=== PATIENT | male | born 1980 | race African-American/Black ===

== ENCOUNTER 2022-04-20 20:41 | Inpatient (IN) ==
[2022-04-20] MEDS ORDERED: THIAMINE HCL 200 MG in SODIUM CHLORIDE 0.9% 50 ML IV STA (20:52)
[2022-04-20] MEDS ORDERED: ONDANSETRON INJ 2 MG/ML 2 ML VIAL IV STA (20:52)
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
[2022-04-20] MEDS ORDERED: SODIUM CHLORIDE 0.9% 1000ML 1,000 ML IV SCH (21:00)
[2022-04-20 21:21] LABS: Partial Thromboplastin Ratio 0.9; Partial Thromboplastin Time 23.4 Seconds (21.0-31.0); Prothrombin Time 10.4 Seconds (9.0-12.0)
[2022-04-20 21:31] LABS: Basophils # (auto) 0.07 K/uL (0-0.2); Basophils % (auto) 1.4 %; Eosinophils # (auto) 0.32 K/uL (0-0.50); Eosinophils % (auto) 6.3 %; Hematocrit (blood only) 36.4 % (40.1-51.0); Hemoglobin 12.6 g/dl (14.0-18.0); Immature Granulocytes # (auto) 0.01 K/uL (0.00-0.02); Immature Granulocytes % (auto) 0.2 %; Lymphocytes # (auto) 2.56 K/uL (1.2-3.4); Mean Corpuscular Hgb Conc 34.6 g/dL (32.0-36.0); Mean Corpuscular Volume 89.7 fL (80.0-100.0); Mean Platelet Volume 9.2 fL (9.4-12.4); Monocytes # (auto) 0.32 K/uL (0.24-0.82); Monocytes % (auto) 6.3 %; Neutrophils # (auto) 1.84 K/uL (1.4-6.5); Neutrophils % (auto) 35.8 %; Platelet Count 301 K/uL (130-400); RDW Coefficient of Variation 12.2 % (11.5-14.5); RDW Standard Deviation 40.4 fL (36.4-46.3); Red Blood Count 4.06 M/uL (4.63-6.08); White Blood Count 5.12 K/ul (4.8-10.8)
[2022-04-20 21:32] LABS: Acetaminophen < 3 ug/ml (10-30); Salicylate < 3.0 mg/dl (3.0-30)
[2022-04-20 21:33] LABS: Albumin Globulin Ratio 1.6 (0.9-2); Albumin Level 4.1 gm/dl (3.4-5.0); BUN Creatinine Ratio 16.5 (10-20); Bilirubin,Total 0.4 mg/dl (0.2-1.0); Calcium 8.4 mg/dl (8.5-10.1); Est GFR (African American) 131.1 ml/min; Est GFR (Non-African American) 113.1 ml/min; Globulin 2.6 gm/dl (2.5-4.0); Potassium 3.5 mmol/L (3.5-5.1); Total Protein 6.7 gm/dl (6.0-8.3)
[2022-04-20 21:38] LABS: Troponin I High Sensitivity 5.9 pg/ml (0-20)
[2022-04-21] MEDS ORDERED: SODIUM CHLORIDE 0.9% 1000ML 1,000 ML IV ONE (01:01)
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
[2022-04-21] MEDS ORDERED: Ativan IV Alcohol Withdrawal--Active Protocol IV PRN (02:56)
[2022-04-21] MEDS ORDERED: ONDANSETRON INJ 2 MG/ML 2 ML VIAL IV PRN (02:56)
[2022-04-21] MEDS ORDERED: LORazepam 1 MG in SYRINGE 0 ML IV PRN (02:56)
[2022-04-21] MEDS ORDERED: LORazepam 3 MG in SYRINGE 0 ML IV PRN (02:56)
[2022-04-21] MEDS ORDERED: LORazepam 2 MG in SYRINGE 0 ML IV PRN (02:56)
[2022-04-21] MEDS: LACTATED RINGER'S 1,000 ML IV SCH ×2 (03:37→11:21)
[2022-04-21 03:43] LABS: Appearance Urine Cloudy (Clear); Bacteria Urine Automated Negative (Negative); Bilirubin Urine Negative (Negative); Blood Urine Negative (Negative); Color Urine Yellow; Epithelial Cell Urine Auto 20-30 /lpf (0-5); Glucose Urine UA Negative (Negative); Ketones Urine Trace (Negative); Leukocyte Esterase Urine 1+ (Negative); Nitrite Urine Negative (Negative); Protein Urine Negative (Negative); RBC Urine Automated 0-4 /hpf (0-4); Specific Gravity Urine 1.022 (1.000-1.030); Urobilinogen Urine Negative (Negative)
[2022-04-21 04:03] LABS: Amphetamines+Metham, Urine Neg (Neg); Barbiturates, Urine Neg (Neg); Benzodiazepine, Urine Neg (Neg); Cocaine, Urine Neg (Neg); MDMA (Ecstacy), Urine Neg (Neg); Methadone, Urine Neg (Neg); Opiate, Urine Neg (Neg); Phencyclidine, Urine Neg (Neg)
[2022-04-21 04:03] LABS: Hematocrit (blood only) 31.8 % (40.1-51.0); Mean Corpuscular Hemoglobin 31.5 pg (25.0-34.0); Mean Corpuscular Hgb Conc 34.6 g/dL (32.0-36.0); Mean Corpuscular Volume 91.1 fL (80.0-100.0); Platelet Count 251 K/uL (130-400); RDW Coefficient of Variation 12.8 % (11.5-14.5); RDW Standard Deviation 42.4 fL (36.4-46.3); Red Blood Count 3.49 M/uL (4.63-6.08); White Blood Count 4.52 K/ul (4.8-10.8)
[2022-04-21 04:21] LABS: BUN Creatinine Ratio 19.3 (10-20); Calcium 7.7 mg/dl (8.5-10.1); Creatinine Clr Calc Pharmacy 138.9 ml/min; Est GFR (African American) 128.5 ml/min; Est GFR (Non-African American) 110.8 ml/min; Potassium 3.7 mmol/L (3.5-5.1)
[2022-04-21 04:30] LABS: Basophils # (auto) 0.04 K/uL (0-0.2); Basophils % (auto) 0.9 %; Eosinophils # (auto) 0.36 K/uL (0-0.50); Lymphocytes # (auto) 2.45 K/uL (1.2-3.4); Lymphocytes % (auto) 54.2 %; Monocytes # (auto) 0.37 K/uL (0.24-0.82); Monocytes % (auto) 8.2 %; Neutrophils % (auto) 28.7 %
--- NOTE | 2022-04-21 06:39 | CT Scan Report ---
CT head/brain wo con CLINICAL HISTORY: 41 years-old Male with sz. Acute seizure like activity TECHNIQUE: Multiple axial CT images of the head were obtained without contrast. A dose lowering tech nique was utilized adhering to the principles of ALARA. CT DOSE: 1014.16 mGy.cm COMPARISON: CT cervical spine of same day FINDINGS: No acute intracranial hemorrhage, midline shift, intracranial mass, hydrocephalus, territorial ischem ia or abnormal extra-axial collection. Encephalomalacia within the left greater than right parietal o ccipital distributions. Calcifications of the falx cerebri. The calvarium is intact. The paranasal sinuses, mastoid air cells, and middle ear cavities are clear . IMPRESSION: 1. No acute intracranial abnormality. 2. Encephalomalacia of the left greater than right parieto-occipital distributions compatible with ar eas of chronic insult. ACT 112: Negative or not required by law. The above report was generated using voice recognition software. It may contain grammatical, syntax o r spelling errors. Electronically signed by: Roberto Kaufman M.D. 04/21/2022 6:37 AM
--- NOTE | 2022-04-21 08:04 | XRay Report ---
XR chest 1V portable HISTORY: 41 years-old Male sz acute seizure like activity COMPARISON: Chest radiograph and CTA chest 04/01/2022 TECHNIQUE: AP view of the chest FINDINGS: Cardiomediastinal and hilar silhouettes are within normal limits. No pneumothorax, pleural effusion, airspace consolidation or overt pulmonary edema. Bones of the chest appear grossly intact. There is u nchanged 1.9 cm ossification projected over the left axilla. IMPRESSION: No acute process. ACT 112: Negative or not required by law. The above report was generated using voice recognition software. It may contain grammatical, syntax o r spelling errors. Electronically signed by: Roberto Kaufman M.D. 04/21/2022 8:03 AM
[2022-04-21] MEDS: NICOTINE 14 MG/24 HR PATCH TD SCH (08:23)
[2022-04-21] MEDS: THIAMINE HCL 100 MG TAB PO SCH (08:24)
[2022-04-21] MEDS: levETIRAcetam 500 MG TAB PO SCH ×2 (08:24→20:11)
[2022-04-21] MEDS: FOLIC ACID 1 MG TAB PO SCH (08:25)
--- NOTE | 2022-04-21 08:37 | CT Scan Report ---
CT OF THE CERVICAL SPINE WITHOUT CONTRAST CLINICAL HISTORY: Seizure. COMPARISON STUDY: No previous studies for comparison. TECHNIQUE: Helical axial images of the cervical spine were obtained without IV contrast. Sagittal a nd coronal reconstructions were viewed. Automated exposure control was utilized for the study. A do se lowering technique was utilized adhering to the principles of ALARA. FINDINGS: There is reversal of the cervical lordosis. Vertebral body heights are maintained. No acute cervical spine fracture or subluxation is present. There is no prevertebral edema. Facet joints are intact. Mild multilevel degenerative changes are present within the cervical spine. IMPRESSION: No acute cervical spine fracture or subluxation. ACT 112: Negative or not required by law. Electronically signed by: Raul Campos M.D. 04/21/2022 8:36 AM
--- NOTE | 2022-04-21 11:13 | Electrocardiogram Report ---
Test Reason : Blood Pressure : / mmHG Vent. Rate : 071 BPM Atrial Rate : 071 BPM P-R Int : 146 ms QRS Dur : 086 ms QT Int : 366 ms P-R-T Axes : 063 073 061 degrees QTc Int : 397 ms Normal sinus rhythm ST elevation, consider early repolarization, pericarditis, or injury Normal ECG When compared with ECG of 01-APR-2022 20:48, No significant change was found Confirmed by Sancho Lara ([id number]) on 04/21/2022 11:12:39 AM Referred By: REFERRED SELF Confirmed By:Rk Lara
--- NOTE | 2022-04-21 15:35 | Hospitalist Progress Note ---
Date of Service April 21, 2022 Assessment & Plan (1) Desire for detoxification: Plan: 41yo male with history of daily EtOH use presents requesting placement in rehabilitation. Patient drinks daily, difficult to quantify amount. He reports sometimes over 20 drinks/day. Last drink was prior to arrival. Elevated ETOH level on admission No prior EtOH rehab placement per patient Mild tremors on exam Continue CIWA protocol Fall and seizure precausion Thiamine and Folate repletion (2) Seizure-like activity: Plan: Patient with history of seizures -Continue keppra -Seizure precautions per protocol Plan Ppx - low risk for DVT Code - DNR/DNI per discussion with patient Dispo - Admit to medical with telemetry Admission and Anticipated Discharge Date Admission Date: April 21, 2022 Subjective patient seen and examined in the ER, came for detox Review of Systems Review of Systems: All systems reviewed are negative, apart from the ones contained in the history. Physical Exam Physical Exam: The patient is awake, alert and oriented 3, well developed and well nourished, normocephalic and atraumatic, lying in bed and in no acute distress. HEENT--PERRL, EOMI, mucous membranes and oropharynx mildly dry Neck--supple. No JVD. No bruits. Thyroid normal, trachea midline, no adenopathy. Heart--normal S1 and S2. No murmurs, rubs or gallops. Lungs--clear bilaterally, no respiratory distress, no accessory muscle use. Abdomen--normal bowel sounds and soft. Mild epigastric and left sided abdominal pain Extremities--no cyanosis or clubbing. No edema. Dermatologic--normal skin turgor, normal color, no abnormal lymph nodes, no rash. Neurologic--cranial nerves II through XII grossly intact. Rheumatologic--normal range of motion. Psychiatric--normal affect. Results & Data Results & Data ([facility]) Vital Signs (Past 12 Hours) Vital Signs Temp Pulse Pulse Resp BP Pulse Ox O2 Del Method 04/21/22 15:21 98.6 F 80 118/70 98 Room Air 04/21/22 08:29 71 13 118/72 04/21/22 03:38 99.3 F 89 21 108/66 98 Room Air PG Care Time/CCT Total # of Minutes Spent Total Time Spent with Patient: Total time spent is greater than 50% in coordination of care (as documented) at patient's floor/unit and/or counseling patient: Coding Level of Care Code None Diagnoses Desire for detoxification Seizure-like activity R56.9
[2022-04-22 08:40] LABS: BUN Creatinine Ratio 21.3 (10-20); Calcium 8.3 mg/dl (8.5-10.1); Creatinine Clr Calc Pharmacy 144.1 ml/min; Est GFR (African American) 130.4 ml/min; Est GFR (Non-African American) 112.5 ml/min; Potassium 4.2 mmol/L (3.5-5.1)
[2022-04-22] MEDS: THIAMINE HCL 100 MG TAB PO SCH (08:46)
[2022-04-22] MEDS: levETIRAcetam 500 MG TAB PO SCH ×2 (08:46→21:27)
[2022-04-22] MEDS: FOLIC ACID 1 MG TAB PO SCH (08:47)
[2022-04-22] MEDS: NICOTINE 14 MG/24 HR PATCH TD SCH (08:47)
[2022-04-22] MEDS: ACETAMINOPHEN 325 MG TAB PO PRN ×2 (08:57→14:01)
--- NOTE | 2022-04-22 13:31 | Hospitalist Progress Note ---
Date of Service April 22, 2022 Assessment & Plan (1) Desire for detoxification: Plan: 41yo male with history of daily EtOH use presents requesting placement in rehabilitation. Patient drinks daily, difficult to quantify amount. He reports sometimes over 20 drinks/day. Last drink was prior to arrival. Alcohol abuse with intoxication with request for detox: Elevated ETOH level on admission No prior EtOH rehab placement per patient Mild tremors on exam Continue CIWA protocol Fall and seizure precausion Thiamine and Folate repletion (2) Seizure-like activity: Plan: Patient with history of seizures -Continue keppra -Seizure precautions per protocol Plan Ppx - low risk for DVT Code - DNR/DNI per discussion with patient Dispo - continue hospitalization Admission and Anticipated Discharge Date Admission Date: April 21, 2022 Subjective patient seen and examined, no new complaints Review of Systems Review of Systems: All systems reviewed are negative, apart from the ones contained in the history. Physical Exam Physical Exam: The patient is awake, alert and oriented 3, well developed and well nourished, normocephalic and atraumatic, lying in bed and in no acute distress. HEENT--PERRL, EOMI, mucous membranes and oropharynx mildly dry Neck--supple. No JVD. No bruits. Thyroid normal, trachea midline, no adenopathy. Heart--normal S1 and S2. No murmurs, rubs or gallops. Lungs--clear bilaterally, no respiratory distress, no accessory muscle use. Abdomen--normal bowel sounds and soft. Mild epigastric and left sided abdominal pain Extremities--no cyanosis or clubbing. No edema. Dermatologic--normal skin turgor, normal color, no abnormal lymph nodes, no rash. Neurologic--cranial nerves II through XII grossly intact. Rheumatologic--normal range of motion. Psychiatric--normal affect. Results & Data Results & Data ([facility]) Vital Signs (Past 12 Hours) Vital Signs Temp Pulse Pulse Resp BP Pulse Ox O2 Del Method 04/22/22 09:00 68 04/22/22 08:03 98.6 F 67 18 99/63 L 100 Room Air 04/22/22 06:04 97.7 F 73 16 112/73 97 Room Air 04/22/22 04:22 97.9 F 70 20 95/58 L 100 Room Air PG Care Time/CCT Total # of Minutes Spent Total Time Spent with Patient: Total time spent is greater than 50% in coordination of care (as documented) at patient's floor/unit and/or counseling patient: Coding Level of Care Code 61548 Subseq Hosp Care Lvl 2 Diagnoses Desire for detoxification Seizure-like activity R56.9 Time Spent (min) 35
--- NOTE | 2022-04-22 15:09 | XRay Report ---
XR shoulder RT min 2V routine CLINICAL HISTORY: Right shoulder pain. COMPARISON STUDY: None. FINDINGS: No fracture or dislocation within the right shoulder. The right clavicle is intact. Soft ti ssues are unremarkable. Cartilage spaces are maintained for age. Slight offset at the radiocarpal trey nt. This could represent an old acromioclavicular joint separation. IMPRESSION: 1. No acute fracture or dislocation within the right shoulder. 2. Slight offset at the right acromioclavicular joint which could represent an old separation. ACT 112: Negative or not required by law. Electronically signed by: Leroy Blake M.D. 04/22/2022 3:08 PM
[2022-04-22 21:16] LABS: Appearance Urine Clear (Clear); Bacteria Urine Automated 1+ (Negative); Bilirubin Urine Negative (Negative); Blood Urine Negative (Negative); Color Urine Yellow; Epithelial Cell Urine Auto >30 /lpf (0-5); Glucose Urine UA Negative (Negative); Ketones Urine Trace (Negative); Leukocyte Esterase Urine Trace (Negative); Nitrite Urine Negative (Negative); Protein Urine Negative (Negative); RBC Urine Automated 0-4 /hpf (0-4); Specific Gravity Urine 1.025 (1.000-1.030); Urobilinogen Urine Negative (Negative)
[2022-04-23] MEDS: levETIRAcetam 500 MG TAB PO SCH (08:00)
[2022-04-23] MEDS: NICOTINE 14 MG/24 HR PATCH TD SCH (08:00)
[2022-04-23] MEDS: THIAMINE HCL 100 MG TAB PO SCH (08:04)
[2022-04-23] MEDS: FOLIC ACID 1 MG TAB PO SCH (08:04)
--- NOTE | 2022-04-23 12:48 | Discharge Summary ---
Date of Service April 23, 2022 Admission HPI Per Admitting Provider Ambar Larsen is a 41yo male with history of seizure disorder, EtOH use presenting with request for EtOH detoxification. Patient sleeping, arousable and answers questions but does not provide many details of events prior to arrival. Patient is presently undomiciled and resides at the [facility]. He states that he was kicked out of the retirement yesterday due to having an argument with someone. He is able to return to the retirement in 7 days (Wednesday, April 27). He reports that he "drinks a lot", whatever he can get his hands on. Difficult to quantify amount of daily EtOH intake - patient reports sometimes it is over 20 drinks Last drink was 04/20/22 prior to arrival to ER. Patient denies history of complicated EtOH withdrawals. He does have a history of seizure disorder for which he takes Keppra but states his seizures are unrelated to intoxication or withdrawal. No additional complaints at this time. Specifically patient denies fever, chills, cough, SOB, abdominal pain, nausea, vomiting, diarrhea or constipation. He does report having a "knot" in his chest sometimes but seems to be non- exertional. In the ER he is afebrile, HD stable, NAD ER Course: Zofran, NSS, Thiamine Principal Diagnosis alcohol intoxication Discharge Exam The patient is awake, alert and oriented 3, well developed and well nourished, normocephalic and atraumatic, lying in bed and in no acute distress. HEENT--PERRL, EOMI, mucous membranes and oropharynx mildly dry Neck--supple. No JVD. No bruits. Thyroid normal, trachea midline, no adenopathy. Heart--normal S1 and S2. No murmurs, rubs or gallops. Lungs--clear bilaterally, no respiratory distress, no accessory muscle use. Abdomen--normal bowel sounds and soft. Mild epigastric and left sided abdominal pain Extremities--no cyanosis or clubbing. No edema. Dermatologic--normal skin turgor, normal color, no abnormal lymph nodes, no rash. Neurologic--cranial nerves II through XII grossly intact. Rheumatologic--normal range of motion. Psychiatric--normal affect. Discharge Data Allergies Allergy/AdvReac Type Severity Reaction Status Date / Time No Known Allergies Allergy Verified 04/20/22 22:02 Consultations 04/21/22 02:12 ED Decision to Admit Stat Ordered Studies 04/20/22 20:52 CT cervical spine wo con Stat CT head/brain wo con Stat Hospital Course (1) Desire for detoxification: 41yo male with history of daily EtOH use presents requesting placement in [facility]. Patient drinks daily, difficult to quantify amount. He reports sometimes over 20 drinks/day. Last drink was prior to arrival. Alcohol abuse with intoxication with request for detox: Elevated ETOH level on admission No prior EtOH rehab placement per patient Mild tremors on exam Continue CIWA protocol, did not score on CIWA, so did not receive any Ativan throughout his stay Fall and seizure precaution Thiamine and Folate repletion patient was counselled on alcohol cessation (2) Seizure-like activity: Patient with history of seizures -Continue keppra -Seizure precautions per protocol Plan Ppx - low risk for DVT Code - DNR/DNI per discussion with patient Dispo - d/c Total Time Total Time Spent Total Time Spent (In Minutes): 35 Discharge Plan Discharge Items Patient Disposition: Home - Self-Care Reason For Visit: REQUESTING REHAB PLACEMENT Discharge Diagnosis: alcohol intoxication, UTI Activity: Resume your previous activity Non-emergency contact: Primary Care Provider Call non-emergency contact if: you have any medication questions Follow-up/Referrals: PCP,NO [Primary Care Provider] - Diet: Regular Addtl Attending Provider Instructions: You are encouraged to stop alcohol and join active groups that will help alcohol cessation, like [facility] Pending Studies at Discharge: No Stand-Alone Forms: [employer], Smoking Cessation Medications and DC Order Prescriptions: New cephalexin 500 mg capsule 500 mg PO BID 7 Days Qty: 14 0RF Continued levetiracetam 750 mg tablet 1,300 mg PO BID Discharge Orders: Discharge Order (Routine); Ordered 04/23/22 Ordered By: Jeff Oakley Admission Data Admit Date/Time: 04/21/22 02:31 Attending Provider: Jeff Oakley Admit Provider: Ale Carpio Primary Care Provider: PCP,NO Other Providers: Ale Carpio Other Interventions: Discharge Summary Assessment (RN) Last Done: 04/23/22 11:28 Coding Level of Care Code D/C DAY MANAGEMENT >30 MINS Diagnoses Desire for detoxification Seizure-like activity R56.9 Time Spent (min) 35
== END 2022-04-23 11:46 | disposition home or self-care (01) | DRG 897 ==
LOC: ED 20:41 → EDINP 04-21 02:31 → SUATTDRO 04-21 02:31 → 2N 04-21 02:55

== ENCOUNTER 2023-08-26 23:44 | Inpatient (IN) ==
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
[2023-08-27 01:06] LABS: Basophils # (auto) 0.05 K/uL (0.00-0.20); Basophils % (auto) 0.9 %; Eosinophils # (auto) 0.37 K/uL (0.00-0.50); Eosinophils % (auto) 6.4 %; Hematocrit (blood only) 37.6 % (42.0-52.0); Immature Granulocytes # (auto) 0.02 K/uL (0.01-0.20); Immature Granulocytes % (auto) 0.3 %; Lymphocytes # (auto) 2.48 K/uL (1.20-3.40); Lymphocytes % (auto) 43.1 %; Mean Corpuscular Hemoglobin 30.7 pg (25.0-34.0); Mean Corpuscular Hgb Conc 34.6 g/dL (32.0-36.0); Mean Corpuscular Volume 88.9 fL (80.0-100.0); Mean Platelet Volume 9.3 fL (9.4-12.4); Monocytes % (auto) 5.2 %; Neutrophils # (auto) 2.54 K/uL (1.40-6.50); Neutrophils % (auto) 44.1 %; Platelet Count 232 K/uL (130-400); RDW Standard Deviation 42.3 fL (36.4-46.3); Red Blood Count 4.23 M/uL (4.70-6.10); White Blood Count 5.76 K/ul (4.8-10.8)
[2023-08-27 01:12] LABS: Influenza A virus by PCR Negative (Neg); Influenza B virus by PCR Negative (Neg); RSV by PCR Negative (Neg); SARS CoV2 RNA(COVID-19) Ceph NEGATIVE (Negative)
[2023-08-27 01:20] LABS: Albumin Globulin Ratio 1.7 (0.9-2); BUN Creatinine Ratio 20.5 (10-20); Bilirubin,Total 0.4 mg/dl (0.2-1.0); Calcium 8.4 mg/dl (8.6-10.3); Creatinine Clr Calc Pharmacy 140.8 ml/min; Est GFR (African American) 129.9 ml/min; Est GFR (Non-African American) 112.1 ml/min; Globulin 2.4 gm/dl (2.5-4.0); Potassium 3.6 mmol/L (3.5-5.1); Total Protein 6.4 gm/dl (6.0-8.3)
[2023-08-27] MEDS: KETOROLAC TROMETHAMINE 60 MG/2 ML VIAL IM STA (01:31)
[2023-08-27 01:33] LABS: Thyroid Stimulating Hormone 0.444 uIu/ml (0.300-4.500)
[2023-08-27] MEDS: KETOROLAC 30 MG/ML VIAL IV ONE (01:34)
[2023-08-27 02:14] LABS: Acetaminophen < 3 ug/ml (10-30); Salicylate < 3.0 mg/dl (3.0-30)
[2023-08-27] MEDS: DIPHTHER/TETAN/PERTUS Vaccine (Tdap, Adol/Adult) 0.5mL IM ONE (05:50)
[2023-08-27] MEDS ORDERED: LORazepam 1 MG in SYRINGE 0.5 ML IV PRN (07:00)
[2023-08-27] MEDS ORDERED: LORazepam 2 MG in SYRINGE 1 ML IV PRN (07:00)
[2023-08-27] MEDS ORDERED: Ativan IV Alcohol Withdrawal--Active Protocol IV PRN (07:00)
[2023-08-27] MEDS ORDERED: LORazepam 3 MG in SYRINGE 1.5 ML IV PRN (07:00)
--- NOTE | 2023-08-27 07:02 | Emergency Department Note ---
ED Visit Note I received signout from Dr. Blair. The patient had transition to a 201 voluntary commitment as the patient had described wanting to harm himself. I do speak with case management. The patient is have a history of chronic alcohol use and there is a concern for withdrawal. Patient was admitted to the medicine service with psych consult. CIWA protocol was initiated and patient was ordered Librium. I did speak with Dr. Cortes and the patient was admitted to the medicine service. .
[2023-08-27] MEDS: chlordiazePOXIDE HCl 25 MG CAP PO SCH (07:37)
[2023-08-27 07:43] LABS: Appearance Urine Clear (Clear); Bacteria Urine Automated Negative (Negative); Bilirubin Urine Negative (Negative); Blood Urine Negative (Negative); Color Urine Yellow; Epithelial Cell Urine Auto >30 /lpf (0-5); Glucose Urine UA Negative (Negative); Ketones Urine 1+ (Negative); Leukocyte Esterase Urine Trace (Negative); Nitrite Urine Negative (Negative); Protein Urine Trace (Negative); RBC Urine Automated 0-4 /hpf (0-4); Specific Gravity Urine 1.028 (1.000-1.030); Urobilinogen Urine Negative (Negative); pH Urine 5.5 (4.5-7.5)
[2023-08-27] MEDS: chlordiazePOXIDE ALCOHOL WITHDRAWL 50MG PO STA (07:50)
[2023-08-27] MEDS: MULTI-VITAMIN INFUSION 10 ML, THIAMINE HCL 100 MG, FOLIC ACID 1 MG in SODIUM CHLORIDE 0... IV ONE (07:54)
[2023-08-27 07:59] LABS: Amphetamines+Metham, Urine Neg (Neg); Barbiturates, Urine Neg (Neg); Benzodiazepine, Urine Neg (Neg); Cocaine, Urine Neg (Neg); MDMA (Ecstacy), Urine Neg (Neg); Marijuana, Urine Neg (Neg); Methadone, Urine Neg (Neg); Opiate, Urine Neg (Neg); Phencyclidine, Urine Neg (Neg)
[2023-08-27] MEDS: THIAMINE HCL 100 MG in SYRINGE 9 ML IV SCH (09:15)
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
[2023-08-27] MEDS ORDERED: Nursing to Pharmacy Communication SCH (14:30)
[2023-08-27] MEDS: levETIRAcetam 500 MG TAB PO SCH (15:34)
--- NOTE | 2023-08-27 16:42 | Discharge Summary ---
Date of Service August 27, 2023 Admission HPI Per Admitting Provider 43-year-old black male who is frequently hospitalized with alcohol intoxication. He is again intoxicated but apparently made some threats of suicidal ideation. He was seen by the ER physician and subsequently recommended for admission and behavioral health consultation. I believe a [address] Principal Diagnosis Alcohol intoxication. Suicidal ideation Discharge Exam General-alert and oriented x3, no fever, no chills HEENT-head atraumatic and normocephalic, pupils equal and reactive to light, extraocular muscles intact Neck-no lymphadenopathy or thyromegaly, trachea midline Chest-clear to auscultation. No rales, wheezing or rhonchi Cardiac-regular rate and rhythm, normal S1 and S2 Abdomen-normal bowel sounds, nontender, no hepatosplenomegaly Extremities-no cyanosis, clubbing, or edema Neuro-cranial nerves II through XII intact, motor and sensory function within normal limits, strength symmetrical, no focal deficits Psych-normal affect, normal mood Discharge Data Allergies Allergy/AdvReac Type Severity Reaction Status Date / Time No Known Allergies Allergy Verified 05/12/23 00:54 Consultations 08/27/23 07:57 ED Decision to Admit Stat 08/27/23 12:23 Consult Behavioral Health Liaison Routine 08/27/23 16:38 Consult Psychiatry Routine Hospital Course (1) Suicidal ideation: Apparently expressed prior to admission. Psychiatry has seen the patient and he now denies any suicidal ideation. 302 has been removed. He is being discharged to home to follow-up as an outpatient. (2) Alcohol intoxication: AWSS protocol. Supportive care. Resolved Plan Home today, August 26. He needs to have outpatient psychiatric follow-up. He is aware. Total Time Total Time Spent Total Time Spent (In Minutes): 50 minutes Discharge Plan Discharge Items Patient Disposition: Home - Self-Care Reason For Visit: SUICIDAL IDEALION, ALCOHOL INTOXICATION Discharge Diagnosis: Suicidal ideation, alcohol intoxication Activity: Resume your previous activity Non-emergency contact: Primary Care Provider Call non-emergency contact if: your symptoms worsen Follow-up/Referrals: PCP,NO [Primary Care Provider] - Diet: Regular Addtl Attending Provider Instructions: Follow-up with psychiatry as an outpatient. Alcohol intake is strongly discouraged Pending Studies at Discharge: No Stand-Alone Forms: My [facility] [place], Smoking Cessation Medications and DC Order Prescriptions: Continued levetiracetam [Keppra] 750 mg tablet 1,500 mg PO BID Rx Instructions: 1st filled 04/29/2023 Discharge Orders: Discharge Order (Routine); Ordered 08/27/23 Ordered By: Eddie Alexander Admission Data Admit Date/Time: 08/27/23 12:21 Attending Provider: Eddie Alexander Admit Provider: Eddie Alexander Primary Care Provider: PCP,NO Other Providers: Eddie Alexander; Inessa Ashby Coding Level of Care Code 81457 INP/OBS DISCH >30 MIN Diagnoses Suicidal ideation R45.851 Alcohol intoxication F10.929
--- NOTE | 2023-08-27 16:44 | Communication Note ---
Date of Service: August 27, 2023 By CMS guidelines, a determination that the admission or continued stay is not medically necessary has been made by a member of the UR committee and a physi chris for this hospital stay, therefore a Code 44 will be completed and the Inpatient admission will be changed to outpatient.
--- NOTE | 2023-08-27 16:46 | Communication Note ---
Date of Service: August 27, 2023 By CMS guidelines, a determination that the admission or continued stay is not medically necessary has been made by a member of the UR committee and a phys ician for this hospital stay, therefore a Code 44 will be completed and the Inpatient admission will be changed to outpatient.
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
[2023-08-27] MEDS ORDERED: levETIRAcetam 500 MG TAB PO SCH (21:00)
[2023-08-28] MEDS ORDERED: chlordiazePOXIDE HCl 25 MG CAP PO SCH (09:15)
[2023-08-29] MEDS ORDERED: chlordiazePOXIDE HCl 25 MG CAP PO SCH (10:15)
== END 2023-08-27 17:10 | disposition home or self-care (01) | DRG 880 ==
LOC: SUATTDRO → ED 23:44 → EDINP 08-27 12:21